=== PATIENT | male | born 1975 | race Caucasian/White ===

== ENCOUNTER → 2019-08-22 11:40 | Outpatient (BNVA) | payer MEDICARE, SELFPAY | PROVIDERS: PCP Family Medicine; Visit Provider Nurse Practitioner | DX: R05 Cough (principal); E11.65 Type 2 diabetes mellitus with hyperglycemia; J06.9 Acute upper respiratory infection, unspecified | CPT/HCPCS: 71046; 80053; 80061; 81000; 82044; 83036; 85025 ==

== ENCOUNTER → 2019-11-01 08:43 | Outpatient (BNVA) | payer MEDICARE, SELFPAY | PROVIDERS: PCP Family Medicine; Visit Provider Social Worker | DX: F71 Moderate intellectual disabilities (principal); F41.1 Generalized anxiety disorder | CPT/HCPCS: 90832 ==

== ENCOUNTER → 2019-11-26 15:33 | Outpatient (BNVA) | payer MEDICARE, SELFPAY | PROVIDERS: PCP Family Medicine; Visit Provider Nurse Practitioner | DX: E11.65 Type 2 diabetes mellitus with hyperglycemia (principal); R60.9 Edema, unspecified | CPT/HCPCS: 80053; 83036 ==

== ENCOUNTER → 2020-01-29 14:39 | Outpatient (BNVA) | payer MEDICARE, SELFPAY | PROVIDERS: PCP Family Medicine; Visit Provider Nurse Practitioner Family | DX: R60.0 Localized edema (principal); S80.869A Insect bite (nonvenomous), unspecified lower leg, initial encounter; M79.89 Other specified soft tissue disorders; W57.XXXA Bitten or stung by nonvenomous insect and other nonvenomous arthropods, initial encounter | CPT/HCPCS: 80053; 85025 ==

== ENCOUNTER 2020-02-07 14:43 | Outpatient (CLI) | payer MEDICARE, SELFPAY ==
--- NOTE | 2020-02-07 15:00 | USCV_ITS ---
Aime Martinez Age: 45 Gender: M : 1975 Exam Date: 02/07/2020 14:58 Ordering Phys: Salud Ching ENGINE BUILDER-C Technologist: Loren Crowder [place] [facility] [place]: [place] HISTORY: Lower extremity swelling. PROCEDURES: Venous duplex imaging was performed in only the left lower extremity. The following venous structures were evaluated: common femoral vein, profunda vein, proximal portion of the greater saphenous vein, superficial femoral vein, and the popliteal vein. In addition, the posterior tibial and peroneal trunk were evaluated. FINDINGS: Normal 2-D Doppler and augmentation and compressibility throughout the lower extremity venous structures. Additional imaging through the proximal calf veins also reveals no thrombus. Limited evaluation of the greater saphenous vein is patent with no thrombus.. CONCLUSIONS No evidence of left lower extremity DVT. Kai Garza MD (Electronically Signed) Final Date: 07 February 2020 16:25 S
== END 2020-02-07 14:44 | disposition home or self-care (01) ==
LOC: RAD 14:49
PROVIDERS: PCP Family Medicine; Visit Provider Nurse Practitioner Family
DX: M79.89 Other specified soft tissue disorders (principal)
CPT/HCPCS: 93971

== ENCOUNTER 2020-02-11 15:02 | Outpatient (CLI) | payer MEDICARE, SELFPAY ==
--- NOTE | 2020-02-11 15:00 | USCV_ITS ---
Aime Martinez Age: 45 Gender: M : 1975 Exam Date: 02/11/2020 15:37 Ordering Phys: Salud Ching STORAGE FACILITY HOUSEKEEPER-C Technologist: Sammy Concepcion Exam [place] [facility] [place]: LEFT LEG SWELLING Risk Factors: Previous Vascular Surgery: RIGHT LEFT BP: 143.0 / 81.00 BP: 145.0/ 85.00 0 0 Waveform Velocity (cm/s) Velocity (cm/s) Waveform Iliac Prox 119.4 Triphasic Iliac Mid 94.7 Triphasic Iliac Distal 116.3 Triphasic DONKEY DOCTOR 112.3 Triphasic SFA Prox 122.3 Triphasic SFA Mid 78.3 Triphasic SFA Dist 70.6 Triphasic POP 84.9 Triphasic GUN NUMBERER 84.9 Triphasic DPA 67.6 Triphasic FINDINGS Normal arterial Doppler waveforms throughout the left lower extremity CONCLUSIONS Possibly no significant arterial obstruction in the left lower extremity, based on the above findings Dr Nabor Etienne MD [facility] (Electronically Signed) Final Date: 11 February 2020 17:59 S
== END 2020-02-11 15:03 | disposition home or self-care (01) ==
LOC: RAD 15:07
PROVIDERS: PCP Family Medicine; Visit Provider Nurse Practitioner Family
DX: M79.89 Other specified soft tissue disorders (principal)
CPT/HCPCS: 93926

== ENCOUNTER → 2020-02-14 11:28 | Outpatient (BNVA) | payer MEDICARE, SELFPAY | PROVIDERS: PCP Family Medicine; Visit Provider Nurse Practitioner | DX: E11.65 Type 2 diabetes mellitus with hyperglycemia (principal) | CPT/HCPCS: 80053; 81000; 82043; 83036; 85025 ==

== ENCOUNTER 2020-02-22 11:30 | Outpatient (RCR) | payer MEDICARE, MEDICAID, SELFPAY | END 2020-02-27 23:59 | disposition home or self-care (01) | LOC: SPT 11:30 | PROVIDERS: PCP Nurse Practitioner; Referring Provider Nurse Practitioner; Visit Provider Nurse Practitioner | DX: I89.0 Lymphedema, not elsewhere classified (principal) | CPT/HCPCS: 97140; 97161 ==

== ENCOUNTER 2020-02-28 06:00 | Outpatient (RCR) | payer MEDICARE, SELFPAY | END 2020-03-18 23:00 | disposition home or self-care (01) | LOC: SPT 06:00 | PROVIDERS: PCP Nurse Practitioner; Referring Provider Nurse Practitioner; Visit Provider Nurse Practitioner | DX: I89.0 Lymphedema, not elsewhere classified (principal) | CPT/HCPCS: 97140 ==

== ENCOUNTER → 2020-04-03 09:12 | Outpatient (BNVA) | payer MEDICARE, SELFPAY | PROVIDERS: PCP Nurse Practitioner; Visit Provider Psychiatry & Neurology Psychiatry | DX: F41.1 Generalized anxiety disorder (principal); F71 Moderate intellectual disabilities | CPT/HCPCS: 90792 ==

== ENCOUNTER → 2020-05-16 11:41 | Outpatient (BNVA) | payer SELFPAY | PROVIDERS: PCP Nurse Practitioner; Visit Provider Nurse Practitioner | DX: R60.9 Edema, unspecified (principal); E11.65 Type 2 diabetes mellitus with hyperglycemia; I73.9 Peripheral vascular disease, unspecified; I89.0 Lymphedema, not elsewhere classified | CPT/HCPCS: 80053; 83036; 85025 ==

== ENCOUNTER → 2020-06-19 08:26 | Outpatient (BNVA) | payer MEDICARE, MEDICAID, SELFPAY | PROVIDERS: PCP Nurse Practitioner; Visit Provider Psychiatry & Neurology Psychiatry | DX: F41.1 Generalized anxiety disorder (principal); F79 Unspecified intellectual disabilities | CPT/HCPCS: 99214 ==

== ENCOUNTER → 2020-07-24 08:16 | Outpatient (BNVA) | payer MEDICARE, MEDICAID, SELFPAY | PROVIDERS: PCP Nurse Practitioner; Visit Provider Psychiatry & Neurology Psychiatry | DX: F41.1 Generalized anxiety disorder (principal); F79 Unspecified intellectual disabilities | CPT/HCPCS: 99214 ==

== ENCOUNTER → 2020-08-04 09:34 | Outpatient (BNVA) | payer MEDICARE, SELFPAY | PROVIDERS: PCP Nurse Practitioner; Visit Provider Nurse Practitioner Family | DX: E11.65 Type 2 diabetes mellitus with hyperglycemia (principal) | CPT/HCPCS: 80053; 80061; 83036; 85025 ==

== ENCOUNTER → 2020-12-15 09:25 | Outpatient (BNVA) | payer MEDICARE, SELFPAY | PROVIDERS: PCP Nurse Practitioner; Visit Provider Nurse Practitioner | DX: E11.65 Type 2 diabetes mellitus with hyperglycemia (principal) | CPT/HCPCS: 83036 ==

== ENCOUNTER → 2021-01-26 13:25 | Outpatient (BNVA) | payer MEDICARE, SELFPAY | PROVIDERS: PCP Nurse Practitioner; Visit Provider Nurse Practitioner | DX: E11.65 Type 2 diabetes mellitus with hyperglycemia (principal); I89.0 Lymphedema, not elsewhere classified | CPT/HCPCS: 80053 ==

== ENCOUNTER → 2021-04-01 14:13 | Outpatient (BNVA) | payer MEDICARE, MEDICAID, SELFPAY | PROVIDERS: PCP Nurse Practitioner; Visit Provider Nurse Practitioner Family | DX: E11.65 Type 2 diabetes mellitus with hyperglycemia (principal) | CPT/HCPCS: 80053; 80061; 83036; 84443; 85025 ==

== ENCOUNTER 2021-05-05 12:20 | Outpatient (RCR) | payer MEDICARE, MEDICAID, SELFPAY | END 2021-05-29 23:59 | disposition home or self-care (01) | LOC: SPT 12:20 | PROVIDERS: PCP Nurse Practitioner; Referring Provider Internal Medicine; Visit Provider Internal Medicine | DX: I89.0 Lymphedema, not elsewhere classified (principal) | CPT/HCPCS: 97140; 97161 ==

== ENCOUNTER → 2021-09-08 13:29 | Outpatient (BNVA) | payer MEDICARE, MEDICAID, SELFPAY | PROVIDERS: PCP Nurse Practitioner; Visit Provider Nurse Practitioner Family | DX: E11.65 Type 2 diabetes mellitus with hyperglycemia (principal); I73.9 Peripheral vascular disease, unspecified; I89.0 Lymphedema, not elsewhere classified; F79 Unspecified intellectual disabilities | CPT/HCPCS: 80053; 80061; 83036; 84443; 85025 ==

== ENCOUNTER → 2021-12-16 15:14 | Outpatient (BNVA) | payer MEDICARE, MEDICAID, OTHER, SELFPAY | PROVIDERS: PCP Nurse Practitioner; Visit Provider Nurse Practitioner Family | DX: E11.65 Type 2 diabetes mellitus with hyperglycemia (principal); F41.1 Generalized anxiety disorder; R60.9 Edema, unspecified; I89.0 Lymphedema, not elsewhere classified; F79 Unspecified intellectual disabilities; F95.9 Tic disorder, unspecified; E11.51 Type 2 diabetes mellitus with diabetic peripheral angiopathy without gangrene | CPT/HCPCS: 80053; 80061; 83036; 84443; 85025 ==

== ENCOUNTER → 2022-03-25 13:04 | Outpatient (BNVA) | payer MEDICARE, MEDICAID, SELFPAY | PROVIDERS: PCP Nurse Practitioner; Visit Provider Nurse Practitioner Family | DX: E11.65 Type 2 diabetes mellitus with hyperglycemia (principal); F41.1 Generalized anxiety disorder; I89.0 Lymphedema, not elsewhere classified; I73.9 Peripheral vascular disease, unspecified; E11.8 Type 2 diabetes mellitus with unspecified complications; F79 Unspecified intellectual disabilities; Z91.199 Patient's noncompliance with other medical treatment and regimen due to unspecified reason | CPT/HCPCS: 80053; 83036; 85025 ==

== ENCOUNTER → 2022-06-16 13:59 | Outpatient (BNVA) | payer MEDICARE, MEDICAID, SELFPAY | PROVIDERS: PCP Nurse Practitioner; Visit Provider Nurse Practitioner Family | DX: E11.65 Type 2 diabetes mellitus with hyperglycemia (principal) | CPT/HCPCS: 80053; 80061; 83036; 84443; 85025 ==

== ENCOUNTER 2022-08-18 06:00 | Outpatient (RCR) | payer MEDICARE, MEDICAID, SELFPAY | END 2022-08-27 23:59 | disposition home or self-care (01) | LOC: SPT 06:00 | PROVIDERS: PCP Nurse Practitioner Family; Visit Provider Nurse Practitioner Family | DX: I89.0 Lymphedema, not elsewhere classified (principal) | CPT/HCPCS: 29581; 97161 ==

== ENCOUNTER 2022-08-23 10:16 | Emergency (ER) | payer MEDICARE, MEDICAID, SELFPAY ==
[2022-08-23 10:39] VITALS: BP 148/99; PULSE 95; TEMP 36.4; O2SAT 97; BMI 36.9
--- NOTE | 2022-08-23 10:44 | W.ED.EXTPRO ---
HPI - Extremity Problem General: Chief complaint: Extremity Problem,Nontraumatic Stated complaint: Sent by leeanne Holbrook fluids Time Seen by Provider: 08/23/22 10:18 Source: patient Mode of arrival: ambulatory Limitations: no limitations (intellectual delay) History of Present Illness: Patient is a 47-year-old male with a history of diabetes, lower extremity lymphedema, intellectual disability, and peripheral vascular disease here after he was recommended to come here by his PCP. From what I can tell from documentation they have been treating patient's lower extremity swelling and possible cellulitis with Lasix and Clindamycin but there has been some issues with questionable compliance. Patient states he does not see anybody for treatment of his lymphedema/weeping. It looks like at one point he was prescribed Medihoney but again I think compliance has been an issue. Patient currently tells me he is asymptomatic and feels at his baseline. He does not complain of any leg pain. No fevers. No chest pain, shortness of breath, difficulty breathing. MD Complaint: extremity swelling Onset (ago): month(s) Pain Consistency: constant Location: left, right and lower extremity Radiation: none Relieving factors: nothing Exacerbating factors: nothing Associated symptoms: Reports no associated symptoms; Deny chest pain or fever(s) Review of Systems Const: Denies: fever(s), chills, body aches, fatigue or malaise Card: Denies: chest pain Resp: Denies: dyspnea or chest congestion GI: Denies: abdominal pain Musc: Reports: extremity swelling; Denies: neck pain, back pain, extremity pain, joint pain, joint swelling or joint warmth Skin/Breast: Reports: other (lymphedema/weeping to bilateral LEs) Neuro: Denies: headache(s), numbness in extremities, weakness in extremities or sensory changes PFSH ED PFSH: Medical History Diabetes mellitus with hyperglycemia, without long-term current use of insulin Dietary noncompliance Enrolled in chronic care management Environmental and seasonal allergies Intellectual disability Lymphedema of lower extremity Mental disability Peripheral vascular disease of lower extremity Psychiatric care Tic disorder Surgical History No history of previous surgery Family History Father Hypertension Grandmother Diabetes Grandfather Psychiatric illness Denies family history of Cancer Social History Smoking and tobacco status: never smoked Second hand smoke exposure: No Smoking risk assessment/counseling performed?: No Alcohol intake: never Desire information about alcohol rehabilitation?: No Counseling given: No Desire information about substance/drug rehabilitation?: No Counseling given: No Adopted: No Caregiver/support person: No Lives independently: Yes Household members: none Housing: House Marital status: Single Number of children: 0 Number of grandchildren: 0 Highest education level completed: 12th Grade, No Diploma service: No Current occupational status: employed Pets and animals: Yes Current gender identity: Male Isabel/Yazdanism: Nondenominational Physical Exam Const: COMMON NORMALS: no acute distress, alert and well nourished GENERAL APPEARANCE: cooperative and other (intellectual disability ) NUTRITIONAL APPEARANCE: obese ORIENTATION/CONSCIOUSNESS: Yes awake, Yes oriented to person and Yes oriented to place HENMT: COMMON NORMALS: normocephalic and atraumatic HEAD & SCALP: normal to inspection, normocephalic and atraumatic Neck/C-Spine: COMMON NORMALS: no JVD Resp: COMMON NORMALS: normal respiratory effort and clear to auscultation bilaterally AUSCULTATION: clear to auscultation bilaterally Cardio: COMMON NORMALS: no JVD, regular rate and regular rhythm RATE: regular rate RHYTHM: regular rhythm Extremity: NARRATIVE EXTREMITY EXAM: bilateral L>R lower extremity edema/lymphedema; chronic diabetic and venous stasis skin changes noted; clear weeping noted from L LE; there is some scattered areas of erythema bilaterally but these appear more inflammatory vs acutely cellulitic Neuro: COMMON NORMALS: moves all extremities, no focal motor deficits and no sensory deficits noted SENSORIUM/ORIENTATION: Yes alert, Yes oriented to person and Yes oriented to place Skin: NARRATIVE SKIN EXAM: see above for pertinent skin findings Course Vital Signs: Vital signs: Vital Signs Temperature 97.6 F 08/23/22 10:39 Pulse Rate 95 08/23/22 10:39 Blood Pressure 148/99 08/23/22 10:39 Pulse Oximetry 97 08/23/22 10:39 Oxygen Delivery Me thod 08/23/22 10:39 MDM - Extremity (Nontraumatic) Medical Decision Making Patient is completely asymptomatic at this time. His vital signs are normal. His white count is normal. He has a normal lactate. CRP is scantly elevated at 12.0. His BNP is normal. CXR shows no evidence of fluid overload. Pharmacy was able to look at patient's pharmacy records and it looks like his Clindamycin was filled on 08/12 for a 10 day supply. He has at least 5 days worth left in his bottle currently so obviously is not taking this as prescribed. This wouldn't be considered failed outpatient therapy as he is not taking the medications correctly. I question whether patient's erythema to his lower legs actually represents a true cellulitis as it looks more chronic inflammatory. Patient filled his Lasix on 07/13 for a 30-day supply the vast majority of the bottle is still full so again compliance is an issue. Told helicopter crew chief that accompanies patient to maybe get a weekly pill prabhakar to remind patient or write a note and leave it on fridge to help remind. I told patient I will place a referral for wound care so they can help with lymphedema and his chronic wounds. Lab Data 08/23/22 11:41 08/23/22 11:41 Radiology Impressions Chest X-Ray 08/23/22 10:45 IMPRESSION: No acute findings. Laboratory Results WBC 7.6 10^3/uL (4.0-10.0) 08/23/22 11:41 RBC 4.93 10^6/uL (4.1-5.3) 08/23/22 11:41 Hgb 15.0 g/dL (11.7-16.6) 08/23/22 11:41 Hct 46.0 % (42.0-52.0) 08/23/22 11:41 MCV 93.3 fl (80-94) 08/23/22 11:41 MCH 30.4 pg (28.0-34.0) 08/23/22 11:41 MCHC 32.6 g/dL (30.0-36.0) 08/23/22 11:41 RDW 12.8 % (12.1-15.1) 08/23/22 11:41 Plt Count 245 10^3/cmm (130-400) 08/23/22 11:41 MPV 8.4 fL (7.4-10.4) 08/23/22 11:41 Neut % (Auto) 74.2 % 08/23/22 11:41 Lymph % (Auto) 17.0 % 08/23/22 11:41 [place] % (Auto) 6.0 % 08/23/22 11:41 Eos % (Auto) 2.0 % 08/23/22 11:41 Baso % (Auto) 0.5 % 08/23/22 11:41 Neut # (Auto) 5.65 10^3/uL (1.8-7.7) 08/23/22 11:41 Lymph # (Auto) 1.3 10^3/uL (0.8-4.8) 08/23/22 11:41 [place] # (Auto) 0.5 10^3/uL (0.2-0.9) 08/23/22 11:41 Eos # (Auto) 0.2 10^3/uL (0.0-0.8) 08/23/22 11:41 Baso # (Auto) 0.0 10^3/uL (0.0-0.1) 08/23/22 11:41 Nucleated RBC % (auto) 0 % 08/23/22 11:41 Nucleated RBCs # 0.0 /100WBC 08/23/22 11:41 Sodium 141 mmol/L (136-145) 08/23/22 11:41 Potassium 3.9 mmol/L (3.5-5.1) 08/23/22 11:41 Chloride 101 mmol/L (98-107) 08/23/22 11:41 Carbon Dioxide 27 mmol/L (22-29) 08/23/22 11:41 Anion Gap 16.9 (5-19) 08/23/22 11:41 BUN 13 mg/dL (6-20) 08/23/22 11:41 Creatinine 1.0 mg/dL (0.7-1.2) 08/23/22 11:41 GFR Calculation 79.8 mL/min (90-130) L 08/23/22 11:41 Glucose 250 mg/dL (65-115) H 08/23/22 11:41 Calculated Osmolality 301 mOsm/kg (285-295) H 08/23/22 11:41 Lactic Acid 2.1 mmol/L (0.5-2.2) 08/23/22 11:41 Calcium 9.4 mg/dL (8.5-10.5) 08/23/22 11:41 Total Bilirubin 0.4 mg/dL (0.15-1.2) 08/23/22 11:41 AST 19 U/L (0-40) 08/23/22 11:41 ALT 16 U/L (0-41) 08/23/22 11:41 Alkaline Phosphatase 79 U/L (40-130) 08/23/22 11:41 C-Reactive Protein 12.0 mg/L (0.0-4.9) H 08/23/22 11:41 NT-Pro-B Natriuret Pep 36 pg/mL (0-125) 08/23/22 11:41 Total Protein 7.7 g/dL (6.6-8.7) 08/23/22 11:41 Albumin 4.0 g/dL (3.5-5.2) 08/23/22 11:41 Globulin 3.7 g/dL (1.3-4.6) 08/23/22 11:41 Discharge Plan Discharge Patient Disposition: Home Clinical Impression: Lymphedema of lower extremity Qualifiers: Laterality: bilateral Qualified Code(s): I89.0 - Lymphedema, not elsewhere classified Condition: Stable Prescriptions: No Action (DME) blood-glucose meter [True Metrix Glucose Meter] Misc See Rx Instructions .ROUTE .MEDSUPPLY Qty: 1 0RF Rx Instructions: daily as needed (DME) True Metrix Glucose Test Strip Strip See Rx Instructions .ROUTE .MEDSUPPLY Qty: 50 5RF Rx Instructions: daily as needed (DME) lancets 33 gauge misc See Rx Instructions .ROUTE .MEDSUPPLY Qty: 100 5RF Rx Instructions: As directed (DME) pen needle, diabetic [Comfort EZ Pen [place]] 32 gauge x 5/32 needle See Rx Instructions .Route Qty: 50 0RF Rx Instructions: As directed (DME) Diabetic Shoes See Rx Instructions .ROUTE .MEDSUPPLY Qty: 1 0RF Rx Instructions: As directed by [facility] with 3 pairs of inserts budesonide [Rhinocort Allergy] 32 mcg/actuation spray,non-aerosol 2 spray intranasal DAILY Qty: 8.43 2RF Rx Instructions: administer into each nostril dulaglutide 3 mg/0.5 mL pen injector See Rx Instructions .ROUTE .COMPLEX Qty: 2 2RF Dose Instruction: INJECT 1.5 MG UNDER SKIN WEEKLY Rx Instructions: INJECT 3 MG UNDER SKIN WEEKLY ON TUESDAY clindamycin HCl 300 mg capsule 300 mg PO TID Qty: 30 0RF furosemide 40 mg tablet 40 mg PO DAILY Qty: 30 2RF potassium chloride 10 mEq capsule, extended release 10 meq PO DAILY Qty: 30 2RF Discharge Orders: Discharge ED (Routine); Ordered 08/23/22 Ordered By: Elayne Larkin Referrals: Salud Ching FNP-C [Primary Care Provider] - Patient Instructions: Lymphedema (ED) Activity Restrictions/Additional Instructions: As we discussed I recommend you write yourself a note or obtain a weekly pill counter/prabhakar to remind you to take your medications. I have placed a referral with wound care so they may help address your chronic wounds and lymphedema. You may follow-up with primary care in the meantime. Coding Level of Care Code ED Customer Security Clerk for Deepak De León
--- NOTE | 2022-08-23 10:45 | XRR_ITS ---
PROCEDURE INFORMATION: Exam: XR Chest Exam date and time: 08/23/2022 10:56 AM Age: 47 years old Clinical indication: Shortness of breath; Additional info: Poss fluid overload TECHNIQUE: Imaging protocol: Radiologic exam of the chest. Views: 1 view. COMPARISON: CR XR chest 2V* [id number] 08/22/2019 11:39 AM FINDINGS: Lungs: Unremarkable. No consolidation. Pleural spaces: Unremarkable. No pleural effusion. No pneumothorax. Heart/Mediastinum: Unremarkable. No cardiomegaly. Bones/joints: Unremarkable. XR/XR chest 1V portable [id number] IMPRESSION: No acute findings.
--- NOTE | 2022-08-23 10:45 | USCV_ITS ---
Aime Martinez Age: 47 Gender: M : 1975 Exam Date: 08/23/2022 10:59 Ordering Phys: Elayne Larkin Technologist: CT [place] [facility] [place]: swelling PROCEDURES: Venous duplex imaging was performed in only the left lower extremity. In addition, the posterior tibial and peroneal trunk were evaluated. On the left side, the common femoral, superficial femoral, profunda femoral, popliteal, posterior tibial, greater saphenous veins, and the peroneal trunk were identified and interrogated in the standard fashion. These veins were found to be easily compressible with spontaneous blood flow. No evidence of insufficiency or thrombus noted. FINDINGS: no dvt CONCLUSIONS No evidence of left lower extremity DVT. aKi Garza MD (Electronically Signed) Final Date: 23 August 2022 14:40 S
[2022-08-23 11:50] LABS: Basophils % 0.5 %; Eosinophils # 0.2 10^3/uL (0.0-0.8); Lymphocytes # 1.3 10^3/uL (0.8-4.8); Mean Corpuscular HGB Conc 32.6 g/dL (30.0-36.0); Mean Corpuscular Hemoglobin 30.4 pg (28.0-34.0); Mean Corpuscular Volume 93.3 fl (80-94); Mean Platelet Volume 8.4 fL (7.4-10.4); Monocytes # 0.5 10^3/uL (0.2-0.9); Neutrophils # 5.65 10^3/uL (1.8-7.7); Neutrophils % 74.2 %; Nucleated Red Blood Cells % 0 %; Platelet Count 245 10^3/cmm (130-400); Red Blood Count 4.93 10^6/uL (4.1-5.3); Red Cell Distribution Width 12.8 % (12.1-15.1); White Blood Count 7.6 10^3/uL (4.0-10.0)
[2022-08-23 12:08] LABS: Lactic Sepsis W/Reflex 2.1 mmol/L (0.5-2.2)
[2022-08-23 12:18] LABS: Alanine Aminotransferase 16 U/L (0-41); Alkaline Phosphatase 79 U/L (40-130); Anion Gap 16.9 (5-19); Aspartate Amino Transferase 19 U/L (0-40); Blood Urea Nitrogen 13 mg/dL (6-20); Calcium 9.4 mg/dL (8.5-10.5); Carbon Dioxide 27 mmol/L (22-29); Chloride 101 mmol/L (98-107); Globulin 3.7 g/dL (1.3-4.6); Glomerular Filtration Rate 79.8 mL/min (90-130); Glucose 250 mg/dL (65-115); NT Pro B Type Natriuretic Pept 36 pg/mL (0-125); Osmolality Calculated 301 mOsm/kg (285-295); Potassium 3.9 mmol/L (3.5-5.1); Sodium 141 mmol/L (136-145); Total Bilirubin 0.4 mg/dL (0.15-1.2); Total Protein 7.7 g/dL (6.6-8.7)
[2022-08-23 13:32] LABS: Reflex Lactate Order REFLEX LACTIC ORDERD
[2022-08-23 13:52] VITALS: BP 148/84; PULSE 86; RESP 18; O2SAT 100
--- NOTE | 2022-08-24 10:28 | DCPLANNER ---
Addendum entered by Nury Aguero 08/25/22 08:57: manager environmental affairs received the following message from the Wound Care clinic regarding follow up appointment:\ LEFT PT A VOICEMAIL TO CALL FOR AN APPT TIME AND DATE. THANK YOU Original Note: manager environmental affairs had message to schedule a follow up appointment for patient with Wound Care. manager environmental affairs sent patients information to the front office staff at Wound Care. Patients information will be printed and reviewed. Clinic will call patient with appointment information.
== END 2022-08-23 13:54 | disposition home or self-care (01) ==
PROVIDERS: Emergency Provider Physician Assistant; PCP Nurse Practitioner Family
DX: I89.0 Lymphedema, not elsewhere classified (principal); E11.9 Type 2 diabetes mellitus without complications
CPT/HCPCS: 71045; 80053; 83605; 83880; 85025; 86140; 93971; 99285

== ENCOUNTER → 2022-09-02 09:48 | Outpatient (BNVA) | payer MEDICARE, MEDICAID, SELFPAY | PROVIDERS: PCP Nurse Practitioner Family; Visit Provider Nurse Practitioner Family | DX: E11.621 Type 2 diabetes mellitus with foot ulcer (principal); L97.822 Non-pressure chronic ulcer of other part of left lower leg with fat layer exposed | CPT/HCPCS: 97597; 97598; 99213 ==

== ENCOUNTER → 2022-09-07 12:09 | Outpatient (BNVA) | payer MEDICARE, MEDICAID, SELFPAY | PROVIDERS: PCP Nurse Practitioner Family; Visit Provider Nurse Practitioner Family | DX: I83.029 Varicose veins of left lower extremity with ulcer of unspecified site (principal); L97.929 Non-pressure chronic ulcer of unspecified part of left lower leg with unspecified severity | CPT/HCPCS: 87070; 87184 ==

== ENCOUNTER → 2022-09-09 10:10 | Outpatient (BNVA) | payer MEDICARE, MEDICAID, SELFPAY | PROVIDERS: PCP Nurse Practitioner Family; Visit Provider Nurse Practitioner Family | DX: I96 Gangrene, not elsewhere classified (principal); E11.622 Type 2 diabetes mellitus with other skin ulcer; L97.822 Non-pressure chronic ulcer of other part of left lower leg with fat layer exposed | CPT/HCPCS: 97597; 97598 ==

== ENCOUNTER → 2022-09-16 10:36 | Outpatient (BNVA) | payer MEDICARE, MEDICAID, SELFPAY | PROVIDERS: PCP Nurse Practitioner Family; Visit Provider Nurse Practitioner Family | DX: I96 Gangrene, not elsewhere classified (principal); E11.622 Type 2 diabetes mellitus with other skin ulcer; L97.822 Non-pressure chronic ulcer of other part of left lower leg with fat layer exposed | CPT/HCPCS: 97597; 97598 ==

== ENCOUNTER → 2022-09-23 09:23 | Outpatient (BNVA) | payer MEDICARE, MEDICAID, SELFPAY | PROVIDERS: PCP Nurse Practitioner Family; Visit Provider Nurse Practitioner Family | DX: I96 Gangrene, not elsewhere classified (principal); E11.622 Type 2 diabetes mellitus with other skin ulcer; L97.822 Non-pressure chronic ulcer of other part of left lower leg with fat layer exposed; R60.0 Localized edema; E11.65 Type 2 diabetes mellitus with hyperglycemia | CPT/HCPCS: 80053; 80061; 83036; 84443; 85025; 97597; 97598 ==

== ENCOUNTER → 2022-09-30 10:50 | Outpatient (BNVA) | payer MEDICARE, MEDICAID, SELFPAY | PROVIDERS: PCP Nurse Practitioner Family; Visit Provider Nurse Practitioner Family | DX: I96 Gangrene, not elsewhere classified (principal); E11.622 Type 2 diabetes mellitus with other skin ulcer; L97.822 Non-pressure chronic ulcer of other part of left lower leg with fat layer exposed | CPT/HCPCS: 97597; 97598; A6219 ==

== ENCOUNTER → 2022-10-07 09:32 | Outpatient (BNVA) | payer MEDICARE, MEDICAID, SELFPAY | PROVIDERS: PCP Nurse Practitioner Family; Visit Provider Nurse Practitioner Family | DX: E11.622 Type 2 diabetes mellitus with other skin ulcer (principal); I96 Gangrene, not elsewhere classified; L97.821 Non-pressure chronic ulcer of other part of left lower leg limited to breakdown of skin | CPT/HCPCS: 97597; 97598; A6220 ==

== ENCOUNTER → 2022-10-14 10:02 | Outpatient (BNVA) | payer MEDICARE, MEDICAID, SELFPAY | PROVIDERS: PCP Nurse Practitioner Family; Visit Provider Nurse Practitioner Family | DX: I96 Gangrene, not elsewhere classified (principal); E11.622 Type 2 diabetes mellitus with other skin ulcer; L97.822 Non-pressure chronic ulcer of other part of left lower leg with fat layer exposed | CPT/HCPCS: 97597 ==

== ENCOUNTER → 2022-10-21 09:54 | Outpatient (BNVA) | payer MEDICARE, MEDICAID, SELFPAY | PROVIDERS: PCP Nurse Practitioner Family; Visit Provider Nurse Practitioner Family | DX: E11.622 Type 2 diabetes mellitus with other skin ulcer (principal); I96 Gangrene, not elsewhere classified; L97.822 Non-pressure chronic ulcer of other part of left lower leg with fat layer exposed; L97.821 Non-pressure chronic ulcer of other part of left lower leg limited to breakdown of skin | CPT/HCPCS: 97597 ==

== ENCOUNTER → 2022-10-28 13:20 | Outpatient (BNVA) | payer MEDICARE, MEDICAID, SELFPAY | PROVIDERS: PCP Nurse Practitioner Family; Visit Provider Nurse Practitioner Family | DX: E11.622 Type 2 diabetes mellitus with other skin ulcer (principal); L97.822 Non-pressure chronic ulcer of other part of left lower leg with fat layer exposed; I96 Gangrene, not elsewhere classified | CPT/HCPCS: 97597 ==

== ENCOUNTER → 2022-11-04 13:41 | Outpatient (BNVA) | payer MEDICARE, MEDICAID, SELFPAY | PROVIDERS: PCP Nurse Practitioner Family; Visit Provider Nurse Practitioner Family | DX: I96 Gangrene, not elsewhere classified (principal); E11.622 Type 2 diabetes mellitus with other skin ulcer; L97.812 Non-pressure chronic ulcer of other part of right lower leg with fat layer exposed; L97.821 Non-pressure chronic ulcer of other part of left lower leg limited to breakdown of skin; Z09 Encounter for follow-up examination after completed treatment for conditions other than malignant neoplasm | CPT/HCPCS: 97597; 97598 ==

== ENCOUNTER → 2022-11-11 11:10 | Outpatient (BNVA) | payer MEDICARE, MEDICAID, SELFPAY | PROVIDERS: PCP Nurse Practitioner Family; Visit Provider Nurse Practitioner Family | DX: E11.52 Type 2 diabetes mellitus with diabetic peripheral angiopathy with gangrene (principal); L97.812 Non-pressure chronic ulcer of other part of right lower leg with fat layer exposed; L97.821 Non-pressure chronic ulcer of other part of left lower leg limited to breakdown of skin | CPT/HCPCS: 97597 ==

== ENCOUNTER → 2022-11-18 13:08 | Outpatient (BNVA) | payer MEDICARE, MEDICAID, SELFPAY | PROVIDERS: PCP Nurse Practitioner Family; Visit Provider Nurse Practitioner Family | DX: E11.52 Type 2 diabetes mellitus with diabetic peripheral angiopathy with gangrene (principal); L97.812 Non-pressure chronic ulcer of other part of right lower leg with fat layer exposed; L97.821 Non-pressure chronic ulcer of other part of left lower leg limited to breakdown of skin | CPT/HCPCS: 97597 ==

== ENCOUNTER → 2022-11-25 15:11 | Outpatient (BNVA) | payer MEDICARE, MEDICAID, SELFPAY | PROVIDERS: PCP Nurse Practitioner Family; Visit Provider Nurse Practitioner Family | DX: E11.52 Type 2 diabetes mellitus with diabetic peripheral angiopathy with gangrene (principal); L97.812 Non-pressure chronic ulcer of other part of right lower leg with fat layer exposed; L97.821 Non-pressure chronic ulcer of other part of left lower leg limited to breakdown of skin | CPT/HCPCS: 97597; A6212 ==

== ENCOUNTER → 2022-12-02 15:04 | Outpatient (BNVA) | payer MEDICARE, MEDICAID, SELFPAY | PROVIDERS: PCP Nurse Practitioner Family; Visit Provider Nurse Practitioner Family | DX: E11.52 Type 2 diabetes mellitus with diabetic peripheral angiopathy with gangrene (principal); L97.812 Non-pressure chronic ulcer of other part of right lower leg with fat layer exposed; L97.821 Non-pressure chronic ulcer of other part of left lower leg limited to breakdown of skin; Z09 Encounter for follow-up examination after completed treatment for conditions other than malignant neoplasm | CPT/HCPCS: 97597 ==

== ENCOUNTER → 2022-12-07 09:56 | Outpatient (BNVA) | payer MEDICARE, MEDICAID, SELFPAY | PROVIDERS: PCP Nurse Practitioner Family; Visit Provider Nurse Practitioner Family | DX: E11.52 Type 2 diabetes mellitus with diabetic peripheral angiopathy with gangrene (principal); L97.812 Non-pressure chronic ulcer of other part of right lower leg with fat layer exposed; L97.821 Non-pressure chronic ulcer of other part of left lower leg limited to breakdown of skin | CPT/HCPCS: 97597; 97598 ==

== ENCOUNTER → 2022-12-14 10:07 | Outpatient (BNVA) | payer MEDICARE, MEDICAID, SELFPAY | PROVIDERS: PCP Nurse Practitioner Family; Visit Provider Nurse Practitioner Family | DX: E11.52 Type 2 diabetes mellitus with diabetic peripheral angiopathy with gangrene (principal); L97.812 Non-pressure chronic ulcer of other part of right lower leg with fat layer exposed; L97.821 Non-pressure chronic ulcer of other part of left lower leg limited to breakdown of skin | CPT/HCPCS: 97597 ==

== ENCOUNTER → 2022-12-21 10:53 | Outpatient (BNVA) | payer MEDICARE, MEDICAID, SELFPAY | PROVIDERS: PCP Nurse Practitioner Family; Visit Provider Nurse Practitioner Family | DX: E11.52 Type 2 diabetes mellitus with diabetic peripheral angiopathy with gangrene (principal); L97.812 Non-pressure chronic ulcer of other part of right lower leg with fat layer exposed; Z09 Encounter for follow-up examination after completed treatment for conditions other than malignant neoplasm | CPT/HCPCS: 97597 ==

== ENCOUNTER → 2023-01-14 10:09 | Outpatient (BNVA) | payer MEDICARE, MEDICAID, SELFPAY | PROVIDERS: PCP Nurse Practitioner Family; Visit Provider Nurse Practitioner Family | DX: E11.65 Type 2 diabetes mellitus with hyperglycemia (principal); R60.0 Localized edema; Z12.5 Encounter for screening for malignant neoplasm of prostate | CPT/HCPCS: 80053; 80061; 83036; 84443; 85025; G0103 ==

== ENCOUNTER 2023-03-07 08:10 | Emergency (ER) | payer MEDICARE, MEDICAID, SELFPAY ==
[2023-03-07 08:13] VITALS: BP 115/75; PULSE 114; TEMP 36.6; O2SAT 96
--- NOTE | 2023-03-07 08:17 | CT_ITS ---
WS: [id number] CT HEAD NONCONTRAST HISTORY: New onset seizures? TECHNIQUE: Contiguous axial imaging performed through the brain in 2.5 mm imaging. Bone and soft tiss ue windows. Sagittal and coronal reformats reviewed. All CT scans at [facility] use at least one of these dose optimization techniques: automated exposure control; mA and/or kV adjustment per pa tient size (includes targeted exams where dose is matched to clinical indication); or iterative recon struction. DLP: 1112.54 mGy.cm COMPARISON: None available. No acute intracranial hemorrhage, midline shift or mass effect. No atrophy or prior infarcts or herniation. Ventricles: Normal size with no hydrocephalus. Paranasal sinuses: As visualized are clear. Mastoid air cells: Well pneumatized. Calvarium and scalp: Skull is intact with no soft tissue edema or swelling. IMPRESSION: Negative head CT.
--- NOTE | 2023-03-07 08:17 | W.ED.GENADLT ---
HPI - General Adult General: Chief complaint: Seizure Stated complaint: possible seizure Time Seen by Provider: 03/07/23 08:15 Source: patient and family Mode of arrival: EMS History of Present Illness: 48-year-old male with history of intellectual impairment. Brought in by EMS for observed seizure at home. His father seem to have an episode where he was shaking foaming at the mouth for about a minute. Father was with him he seemed slightly confused for a few minutes after this episode did not seem to be back to his normal baseline he is back at his normal baseline now he did apparently bite his lip there is no loss of bowel control. He has a remote history of seizures when he was first born he had a seizure and was on seizure medicine until about the age of 4 he was taken off of them at that time and has not had any issues since. No recent head trauma. He does have some chronic venous stasis edema and he is currently on Bactrim for mild cellulitis of his lower extremities. Onset (ago): minute(s) Relieving factors: none Exacerbating factors: none Associated symptoms: Deny chest pain or dyspnea Review of Systems Const: Denies: fever(s) or chills Card: Denies: chest pain Resp: Denies: dyspnea GI: Denies: abdominal pain : Denies: dysuria, urinary frequency or urinary urgency Musc: Denies: neck pain or back pain Skin/Breast: Reports: erythema (Chronic venous stasis edema with some skin breakdown, also chronic) [facility] PFSH: Medical History Diabetes mellitus with hyperglycemia, without long-term current use of insulin Dietary noncompliance Enrolled in chronic care management Environmental and seasonal allergies Intellectual disability Lymphedema of lower extremity Mental disability Peripheral vascular disease of lower extremity Psychiatric care Tic disorder Surgical History No history of previous surgery Family History Father Hypertension Grandmother Diabetes Grandfather Psychiatric illness Denies family history of Cancer Social History Smoking and tobacco status: never smoked Second hand smoke exposure: No Smoking risk assessment/counseling performed?: No Alcohol intake: never Desire information about alcohol rehabilitation?: No Counseling given: No Substance/Drug Use: never Desire information about substance/drug rehabilitation?: No Counseling given: No Adopted: No Caregiver/support person: No Lives independently: Yes Household members: none Housing: House Marital status: Single Number of children: 0 Number of grandchildren: 0 Highest education level completed: 12th Grade, No Diploma service: No Current occupational status: employed Pets and animals: Yes Do you think of yourself as: Straight/Heterosexual Current gender identity: Male Isabel/Jehovah'S Witness: Zoroastrianism Physical Exam Const: COMMON NORMALS: no acute distress GENERAL APPEARANCE: cooperative and comfortable ORIENTATION/CONSCIOUSNESS: Yes awake HENMT: COMMON NORMALS: normocephalic, atraumatic and hearing grossly normal bilaterally HEAD & SCALP: normocephalic and atraumatic Resp: COMMON NORMALS: normal respiratory effort, No retractions, No use of accessory muscles and clear to auscultation bilaterally AUSCULTATION: clear to auscultation bilaterally Cardio: COMMON NORMALS: regular rate, regular rhythm and No murmurs present (Cardio) RATE: regular rate RHYTHM: regular rhythm GI: COMMON NORMALS: Soft to palpation and No hepatosplenomegaly present AUSCULTATION: Yes normoactive bowel sounds PALPATION: Yes Soft to palpation, No Tenderness to palpation present (GI), No Guarding due to palpation present (GI) and Yes No hepatosplenomegaly present Extremity: COMMON NORMALS: normal to inspection and no calf tenderness OTHER: 2+ edema of the lower extremities with skin breakdown mild induration very slight redness no purulent drainage is not significantly warm to the touch. Changes of chronic staining venous stasis edema to the lower extremities bilaterally. Skin: COMMON NORMALS: no rashes or lesions noted GENERAL SKIN EXAM: no rashes or lesions noted Course Vital Signs: Vital signs: Vital Signs Temperature 97.8 F 03/07/23 08:13 Pulse Rate 104 H 03/07/23 08:56 Respiratory Rate 19 H 03/07/23 08:56 Blood Pressure 140/84 03/07/23 08:56 Pulse Oximetry 97 03/07/23 08:56 Oxygen Delivery Me thod Room Air 03/07/23 08:56 MDM - General Adult Medical Decision Making Lactic acid elevated suspect patient did indeed have a seizure. He only had 1 isolated seizure today we will discharge patient home set up outpatient sleep deprived EEG and follow-up with neurology if has recurrent seizures return. Patient does drive. He is advised not to drive until cleared by neurology discussed with him in [facility] that he cannot drive it once he has a new onset of seizures until neurology clears him to return to driving. Medical Records I reviewed the patient's medical records. Lab Data I reviewed the patient's lab results. 03/07/23 08:32 03/07/23 08:32 Laboratory Results WBC 8.81 10^3/uL (3.29-11.43) 03/07/23 08:32 RBC 4.63 10^6/uL (3.85-5.65) 03/07/23 08:32 Hgb 14.30 g/dL (11.27-16.99) 03/07/23 08:32 Hct 43.9 % (37-53) 03/07/23 08:32 MCV 94.8 fl (82-101) 03/07/23 08:32 MCH 30.9 pg (27-33) 03/07/23 08:32 MCHC 32.6 g/dL (30-55) 03/07/23 08:32 RDW 13.5 % (12.1-15.1) 03/07/23 08:32 Plt Count 244 10^3/cmm (157-399) 03/07/23 08:32 MPV 8.3 fL (7.4-10.4) 03/07/23 08:32 Neut % (Auto) 81.0 % 03/07/23 08:32 Lymph % (Auto) 11.5 % 03/07/23 08:32 [place] % (Auto) 5.7 % 03/07/23 08:32 Eos % (Auto) 0.7 % 03/07/23 08:32 Baso % (Auto) 0.3 % 03/07/23 08:32 Neut # (Auto) 7.14 10^3/uL (1.8-7.7) 03/07/23 08:32 Lymph # (Auto) 1.0 10^3/uL (0.8-4.8) 03/07/23 08:32 [place] # (Auto) 0.5 10^3/uL (0.2-0.9) 03/07/23 08:32 Eos # (Auto) 0.1 10^3/uL (0.0-0.8) 03/07/23 08:32 Baso # (Auto) 0.0 10^3/uL (0.0-0.1) 03/07/23 08:32 Nucleated RBC % (auto) 0 % 03/07/23 08:32 Nucleated RBCs # 0.0 /100WBC 03/07/23 08:32 Sodium 136 mmol/L (136-145) 03/07/23 08:32 Potassium 4.0 mmol/L (3.5-5.1) 03/07/23 08:32 Chloride 101 mmol/L (98-107) 03/07/23 08:32 Carbon Dioxide 21 mmol/L (22-29) L 03/07/23 08:32 Anion Gap 18.0 (5-19) 03/07/23 08:32 BUN 13 mg/dL (6-20) 03/07/23 08:32 Creatinine 1.1 mg/dL (0.7-1.2) 03/07/23 08:32 GFR Calculation 71.1 mL/min (90-130) L 03/07/23 08:32 Glucose 292 mg/dL (65-115) H 03/07/23 08:32 Calculated Osmolality 293 mOsm/kg (285-295) 03/07/23 08:32 Lactic Acid 4.7 mmol/L (0.5-2.2) H* 03/07/23 08:32 Calcium 8.9 mg/dL (8.5-10.5) 03/07/23 08:32 Total Bilirubin 0.2 mg/dL (0.15-1.2) 03/07/23 08:32 AST 15 U/L (0-40) 03/07/23 08:32 ALT 14 U/L (0-41) 03/07/23 08:32 Alkaline Phosphatase 80 U/L (40-130) 03/07/23 08:32 Total Protein 7.5 g/dL (6.6-8.7) 03/07/23 08:32 Albumin 4.2 g/dL (3.5-5.2) 03/07/23 08:32 Globulin 3.3 g/dL (1.3-4.6) 03/07/23 08:32 Urine Color Yellow (Yellow) 03/07/23 08:25 Urine Appearance Clear (CLEAR) 03/07/23 08:25 Urine pH 5 (5-7) 03/07/23 08:25 Ur Specific [place] 1.020 (1.005-1.030) 03/07/23 08:25 Urine Protein Neg (Negative) 03/07/23 08:25 Urine Glucose (UA) 4+ (Normal) H 03/07/23 08:25 Urine Ketones 1+ (Negative) H 03/07/23 08:25 Urine Blood Trace (Negative) H 03/07/23 08:25 Urine Nitrate Negative (Negative) 03/07/23 08:25 Urine Bilirubin Neg (Negative) 03/07/23 08:25 Urine Urobilinogen Norm mg/dL (Negative) 03/07/23 08:25 Ur Leukocyte Esterase Negative (Negative) 03/07/23 08:25 Urine RBC 0-4 /hpf (0-2) H 03/07/23 08:25 Urine WBC 0-4 /hpf (0-5) H 03/07/23 08:25 Ur Squamous Epith Cells 0-4 /hpf (0-5) H 03/07/23 08:25 Amorphous Sediment Not Reportable 03/07/23 08:25 Urine Bacteria Trace /hpf (NONE) 03/07/23 08:25 Urine Mucus Trace /hpf 03/07/23 08:25 Urine Sperm 2+ /hpf 03/07/23 08:25 Urine Opiates Screen Negative ng/mL (Negative) 03/07/23 08:25 Ur Barbiturates Screen Negative ng/mL (Negative) 03/07/23 08:25 Ur Phencyclidine Scrn Negative ng/mL (Negative) 03/07/23 08:25 Ur Amphetamines Screen Negative ng/mL (Negative) 03/07/23 08:25 U Benzodiazepines Scrn Negative ng/mL (Negative) 03/07/23 08:25 Urine Cocaine Screen Negative ng/mL (Negative) 03/07/23 08:25 U Marijuana (THC) Screen Negative ng/mL (Negative) 03/07/23 08:25 All radiology interpretation(s) finalized by discharge Discharge Plan Discharge Patient Disposition: Home Clinical Impression: New onset seizure, Intellectual disability Condition: Stable Prescriptions: No Action (DME) blood-glucose meter [True Metrix Glucose Meter] Misc See Rx Instructions .ROUTE .MEDSUPPLY Qty: 1 0RF Rx Instructions: daily as needed (DME) True Metrix Glucose Test Strip Strip See Rx Instructions .ROUTE .MEDSUPPLY Qty: 50 5RF Rx Instructions: daily as needed (DME) lancets 33 gauge misc See Rx Instructions .ROUTE .MEDSUPPLY Qty: 100 5RF Rx Instructions: As directed (DME) pen needle, diabetic [Comfort EZ Pen [place]] 32 gauge x 5/32 needle See Rx Instructions .Route Qty: 50 0RF Rx Instructions: As directed (DME) Diabetic Shoes See Rx Instructions .ROUTE .MEDSUPPLY Qty: 1 0RF Rx Instructions: As directed by [facility] with 3 pairs of inserts budesonide [Rhinocort Allergy] 32 mcg/actuation spray,non-aerosol 2 spray intranasal DAILY Qty: 8.43 2RF Rx Instructions: administer into each nostril doxycycline hyclate 100 mg capsule 100 mg PO BID Qty: 14 0RF levofloxacin 500 mg tablet 500 mg PO DAILY Qty: 7 0RF MediHoney (honey) 100 % paste 1 applic topical BID Qty: 44 2RF potassium chloride 10 mEq capsule, extended release 10 meq PO DAILY Qty: 30 2RF furosemide 40 mg tablet 40 mg PO DAILY Qty: 30 2RF venlafaxine [Effexor XR] 75 mg capsule,extended release 24hr 75 mg PO QAM Qty: 30 2RF semaglutide 2 mg/dose (8 mg/3 mL) pen injector 2 mg SUBCUT .weekly Qty: 3 2RF sulfamethoxazole-trimethoprim 800-160 mg tablet 1 tab PO BID Qty: 20 0RF Discharge Orders: Discharge ED (Routine); Ordered 03/07/23 Ordered By: Akbar Obando Referrals: Salud Ching FNP-C [Primary Care Provider] - Discharge Diet: Usual diet Discharge Activity: Limit activity as instructed Patient Instructions: New-Onset Seizure in Adults (ED), Opioid Safety, Pain Management Activity Restrictions/Additional Instructions: You were seen today in emergency room for possible seizures. Labs do indicate you likely had a seizure. Do not recommend initiating antiseizure medications at this time. He will be discharged home and set up for an outpatient sleep deprived EEG and follow-up with neurology. Return if you have further problems. Coding Level of Care Code ED Scada Engineer for Deepak De León
[2023-03-07 08:38] LABS: Basophils % 0.3 %; Eosinophils # 0.1 10^3/uL (0.0-0.8); Eosinophils % 0.7 %; Hematocrit 43.9 % (37-53); Lymphocytes % 11.5 %; Mean Corpuscular HGB Conc 32.6 g/dL (30-55); Mean Corpuscular Hemoglobin 30.9 pg (27-33); Mean Corpuscular Volume 94.8 fl (82-101); Mean Platelet Volume 8.3 fL (7.4-10.4); Monocytes # 0.5 10^3/uL (0.2-0.9); Monocytes % 5.7 %; Neutrophils # 7.14 10^3/uL (1.8-7.7); Nucleated Red Blood Cells % 0 %; Platelet Count 244 10^3/cmm (157-399); Red Blood Count 4.63 10^6/uL (3.85-5.65); Red Cell Distribution Width 13.5 % (12.1-15.1); White Blood Count 8.81 10^3/uL (3.29-11.43)
[2023-03-07 08:50] LABS: Amphetamines Screen Urine Negative (Negative); Barbiturates Screen Urine Negative (Negative); Benzodiazepines Screen Urine Negative (Negative); Cocaine Screen Urine Negative (Negative); Opiate Screen Urine Negative (Negative); PCP Screen Urine Negative (Negative); THC Screen Urine Negative (Negative)
[2023-03-07 08:56] VITALS: BP 140/84; PULSE 104; RESP 19; O2SAT 97
[2023-03-07 09:00] LABS: Alanine Aminotransferase 14 U/L (0-41); Albumin Level 4.2 g/dL (3.5-5.2); Alkaline Phosphatase 80 U/L (40-130); Aspartate Amino Transferase 15 U/L (0-40); Blood Urea Nitrogen 13 mg/dL (6-20); Calcium 8.9 mg/dL (8.5-10.5); Carbon Dioxide 21 mmol/L (22-29); Chloride 101 mmol/L (98-107); Globulin 3.3 g/dL (1.3-4.6); Glomerular Filtration Rate 71.1 mL/min (90-130); Glucose 292 mg/dL (65-115); Osmolality Calculated 293 mOsm/kg (285-295); Sodium 136 mmol/L (136-145); Total Bilirubin 0.2 mg/dL (0.15-1.2); Total Protein 7.5 g/dL (6.6-8.7)
[2023-03-07 09:05] LABS: Lactic Sepsis W/Reflex 4.7 mmol/L (0.5-2.2)
[2023-03-07 09:19] LABS: Add Urine Microscopic? YES; Bilirubin Urine Neg (Negative); Blood Urine Trace (Negative); Glucose Urine UA 4+ (Normal); Ketones Urine 1+ (Negative); Leukocyte Esterase Urine Negative (Negative); Nitrate Urine Negative (Negative); Protein Urine Neg (Negative); RBC Urine 0-4 /hpf (0-2); Urine Appearance Clear (CLEAR); Urine Color Yellow (Yellow); Urobilinogen Urine Norm (Negative); WBC Urine 0-4 /hpf (0-5); pH Urine 5 (5-7)
[2023-03-07 09:20] LABS: Add Urine Culture? No; Bacteria Urine TRACE /hpf; Mucus Urine TRACE /hpf; Sperm Urine 2+ /hpf; Squamous Epithelial Cell Urine 0-4 /hpf (0-5)
[2023-03-07 10:23] LABS: Reflex Lactate Order REFLEX LACTIC ORDERD
== END 2023-03-07 10:11 | disposition home or self-care (01) ==
PROVIDERS: Emergency Provider Family Medicine; PCP Nurse Practitioner Family
DX: G40.89 Other seizures (principal); F79 Unspecified intellectual disabilities; E11.9 Type 2 diabetes mellitus without complications
CPT/HCPCS: 36415; 70450; 80053; 80306; 81001; 83605; 85025; 99284

== ENCOUNTER → 2023-03-09 11:08 | Outpatient (BNVA) | payer MEDICARE, MEDICAID, SELFPAY | PROVIDERS: PCP Nurse Practitioner Family; Visit Provider Nurse Practitioner Family | DX: R56.9 Unspecified convulsions (principal); F79 Unspecified intellectual disabilities; F95.9 Tic disorder, unspecified; F41.1 Generalized anxiety disorder; E11.65 Type 2 diabetes mellitus with hyperglycemia; R60.9 Edema, unspecified; I83.009 Varicose veins of unspecified lower extremity with ulcer of unspecified site; L97.909 Non-pressure chronic ulcer of unspecified part of unspecified lower leg with unspecified severity; L03.115 Cellulitis of right lower limb; L03.116 Cellulitis of left lower limb; E11.8 Type 2 diabetes mellitus with unspecified complications; I89.0 Lymphedema, not elsewhere classified; I73.9 Peripheral vascular disease, unspecified | CPT/HCPCS: 87070; 87077; 87184 ==

== ENCOUNTER → 2023-03-17 08:58 | Outpatient (BNVA) | payer MEDICARE, MEDICAID, SELFPAY | PROVIDERS: PCP Nurse Practitioner Family; Visit Provider Nurse Practitioner Family | DX: E11.52 Type 2 diabetes mellitus with diabetic peripheral angiopathy with gangrene (principal); E11.622 Type 2 diabetes mellitus with other skin ulcer; L89.892 Pressure ulcer of other site, stage 2 | CPT/HCPCS: 97597; 97598; 99213 ==

== ENCOUNTER → 2023-04-05 10:12 | Outpatient (BNVA) | payer MEDICARE, MEDICAID, SELFPAY | PROVIDERS: PCP Nurse Practitioner Family; Visit Provider Nurse Practitioner Family | DX: E11.52 Type 2 diabetes mellitus with diabetic peripheral angiopathy with gangrene (principal); E11.622 Type 2 diabetes mellitus with other skin ulcer; L97.821 Non-pressure chronic ulcer of other part of left lower leg limited to breakdown of skin | CPT/HCPCS: 97597; 97598; A6210; A6220 ==

== ENCOUNTER → 2023-04-07 13:42 | Outpatient (BNVA) | payer MEDICARE, MEDICAID, SELFPAY | PROVIDERS: PCP Nurse Practitioner Family; Visit Provider Nurse Practitioner Family | DX: E11.65 Type 2 diabetes mellitus with hyperglycemia (principal) | CPT/HCPCS: 80053; 80061; 83036; 84443; 85025 ==

== ENCOUNTER → 2023-04-14 13:05 | Outpatient (BNVA) | payer MEDICARE, MEDICAID, SELFPAY | PROVIDERS: PCP Nurse Practitioner Family; Visit Provider Nurse Practitioner Family | DX: E11.52 Type 2 diabetes mellitus with diabetic peripheral angiopathy with gangrene (principal); E11.622 Type 2 diabetes mellitus with other skin ulcer; L97.821 Non-pressure chronic ulcer of other part of left lower leg limited to breakdown of skin | CPT/HCPCS: 97597; 97598; A6220 ==

== ENCOUNTER → 2023-04-28 11:05 | Outpatient (BNVA) | payer MEDICARE, MEDICAID, SELFPAY | PROVIDERS: PCP Nurse Practitioner Family; Visit Provider Nurse Practitioner Family | DX: Z09 Encounter for follow-up examination after completed treatment for conditions other than malignant neoplasm (principal) | CPT/HCPCS: 99212 ==

== ENCOUNTER → 2023-05-12 08:32 | Outpatient (BNVA) | payer MEDICARE, MEDICAID, SELFPAY | PROVIDERS: PCP Nurse Practitioner Family; Visit Provider Psychiatry & Neurology Neurology | DX: G40.909 Epilepsy, unspecified, not intractable, without status epilepticus (principal) | CPT/HCPCS: 99203 ==

== ENCOUNTER → 2023-07-05 15:05 | Outpatient (BNVA) | payer OTHER, MEDICAID, SELFPAY | PROVIDERS: PCP Nurse Practitioner Family; Visit Provider Psychiatry & Neurology Neurology | DX: G40.909 Epilepsy, unspecified, not intractable, without status epilepticus (principal) | CPT/HCPCS: 95812; 95816 ==

== ENCOUNTER → 2023-07-15 09:05 | Outpatient (BNVA) | payer OTHER, MEDICAID, SELFPAY | PROVIDERS: PCP Nurse Practitioner Family; Visit Provider Nurse Practitioner | DX: E11.65 Type 2 diabetes mellitus with hyperglycemia (principal) | CPT/HCPCS: 80053; 80061; 83036; 84443; 85025 ==

== ENCOUNTER → 2023-11-02 12:36 | Outpatient (BNVA) | payer OTHER, MEDICAID, SELFPAY | PROVIDERS: PCP Nurse Practitioner; Visit Provider Psychiatry & Neurology Neurology | DX: G40.909 Epilepsy, unspecified, not intractable, without status epilepticus (principal); F79 Unspecified intellectual disabilities | CPT/HCPCS: 99213; G0463 ==

== ENCOUNTER → 2023-11-04 09:41 | Outpatient (BNVA) | payer OTHER, MEDICAID, SELFPAY | PROVIDERS: PCP Nurse Practitioner; Visit Provider Nurse Practitioner | DX: E11.9 Type 2 diabetes mellitus without complications (principal); E11.65 Type 2 diabetes mellitus with hyperglycemia; Z79.4 Long term (current) use of insulin | CPT/HCPCS: 80053; 83036 ==

== ENCOUNTER → 2025-02-25 11:58 | Outpatient (BNVA) | payer OTHER, MEDICAID, SELFPAY | PROVIDERS: PCP Nurse Practitioner; Visit Provider Nurse Practitioner | DX: E11.65 Type 2 diabetes mellitus with hyperglycemia (principal); Z79.4 Long term (current) use of insulin | CPT/HCPCS: 82043 ==